=== PATIENT | female | born 1950 | race Caucasian/White ===

== ENCOUNTER 2016-12-13 16:03 | Emergency (ER) ==
--- NOTE | 2016-12-13 16:47 | ED.PDOC ---
General ED Provider: Dr. GABINO GOLDSMITH JR Chief Complaint: Respiratory Complaint Stated Complaint: Sore throat, fever, cough (yellow productive). Pain left posterior chest when breathes. Saw Dr Becerra 3 days ago. Given Rx for amoxicillin. Feeling worse. Low grade temp today, 100.4.[End]5 days 100.4 89 20 96% 167/79 06/03 Time Seen by Physician: 16:30 Mode of Arrival: Walk-In Information Source: Patient Exam Limitations: No limitations Primary Care Provider: MARY BECERRA Nursing and Triage Documentation Reviewed and Agree: No Review of Systems - Review Of Systems Constitutional: Reports: Fever, Malaise Eyes: Reports: No symptoms Ears, Nose, Mouth, Throat: Reports: Nose discharge, Throat pain Respiratory: Reports: Cough Cardiac: Reports: No symptoms GI: Reports: No symptoms : Reports: No symptoms Musculoskeletal: Reports: No symptoms Skin: Reports: No symptoms Neurological: Reports: No symptoms Endocrine: Reports: No symptoms Hematologic/Lymphatic: Reports: No symptoms All Other Systems: Other Past Medical History - Past Medical History Previously Healthy: No Endocrine: Reports: DM 2, Dyslipidemia Cardiovascular: Reports: Hypertension, A-Fib Respiratory: Reports: None Hematological: Reports: Anemia Gastrointestinal: Reports: GERD Genitourinary: Reports: None Neuro/Psych: Reports: Anxiety Musculoskeletal: Reports: Arthritis Cancer: Reports: None Last Menstrual Period: hysterectomy Other Pertinent Past Medical History: LEFT EYE WITH OPTIC NEURITIS - Surgical History General Surgical History: Reports: Hysterectomy, Cholecystectomy, Other (RIGHT EYE, TEAR DUCT SURGERY ) - Family History Family History: Reports: None - Social History Smoking Status: Never smoker Hx Substance Use: No Alcohol Screening: None Physical Exam - Physical Exam Appearance: Well-appearing Pain Distress: Moderate Eyes: BRI, EOMI, Conjunctiva clear ENT: Ears normal, Nose normal, Oropharynx normal Neck: Supple Respiratory: Airway patent, Breath sounds clear, Breath sounds equal, Respirations nonlabored Cardiovascular: RRR, Pulses normal, No rub, No murmur GI/: Soft, Nontender, No masses, Bowel sounds normal, No Organomegaly Musculoskeletal: Normal strength, ROM intact, No edema, No calf tenderness Skin: Warm, Dry, Normal color Neurological: Sensation intact, Motor intact, Reflexes intact, Cranial nerves intact, Alert, Oriented Psychiatric: Affect appropriate, Mood appropriate Critical Care Note - Critical Care Note Total Time (mins): 0 Course - Course Orders, Labs, Meds: Orders Category Date Time Status CXR [CHEST, 2 VIEWS PA & LAT] Stat RADS 12/13/16 16:47 Completed Vital Signs: Temp Pulse Resp BP Pulse Ox 12/13/16 16:04 100.4 F H 89 20 167/79 H 96 Departure - Departure Time of Disposition: 17:09 Disposition: HOME SELF-CARE Discharge Problem: URTI (acute upper respiratory infection) Instructions: Upper Respiratory Infection (ED) Condition: Good Pt referred to PMD for follow-up: Yes Additional Instructions: home finish Amoxil may use Benadryl for symptoms may use Claritin for symptoms call PMD for follow up Allergies/Adverse Reactions: Allergies codeine Adverse Reaction (Verified 03/23/16 22:30) HOT FLASHES Home Medications: Ambulatory Orders Lovastatin 20 mg PO BEDTIME 12/20/13 Metformin HCl [Glucophage] 1,000 mg PO BIDWM 12/20/13 Omeprazole Magnesium [Prilosec Otc] 20 mg PO BID 12/20/13 Losartan Potassium [Cozaar] 50 mg PO DAILY #30 tablet 01/25/15 Potassium Chloride [K-Dur] 20 meq PO BID #60 tab 01/25/15 Amoxicillin/Potassium Clav [Augmentin 500-125 mg Tab] 1 tab PO Q12HR 03/23/16 Glimepiride [Amaryl] 2 mg PO DAILY 03/23/16 Sotalol HCl [Betapace] 80 mg PO BID 03/23/16 Aspirin [Aspirin EC] 81 mg PO DAILYWM 12/13/16
[2016-12-13 16:52] VITALS: BP 167/79; TEMP 100.4; BMI 33.3
--- NOTE | 2016-12-13 17:10 | DI ---
EXAM: Chest two views HISTORY: Cough, fever COMPARISON: 03/23/2016 TECHNIQUE: Two views of the chest were performed FINDINGS: There is lower airway bronchial wall thickening. There is no focal airspace consolidatio n. There is no pleural effusion or pneumothorax. The heart is borderline enlarged and unchanged in size. The mediastinal contour is normal. There is no acute abnormality of the bones. IMPRESSION: Lower airway thickening may represent reactive airways disease or bronchiolitis. No fo kevin airspace consolidation.
== END 2016-12-13 17:35 | disposition home or self-care (01) ==
LOC: ED 16:03
DX: J06.9 Acute upper respiratory infection, unspecified (principal)
CPT/HCPCS: 99282

== ENCOUNTER 2017-05-02 10:08 | Outpatient (CLI) | payer OTHER ==
--- NOTE | 2017-05-03 08:23 | MAMMO ---
EXAM: Bilateral digital screening mammogram History: Screening Comparison: Bilateral mammogram 10/08/2014 Findings: MLO and CC views of bilateral breasts demonstrate scattered fibroglandular breast parench yma. Stable benign bilateral breast calcifications. There are no dominant masses, no suspicious mi crocalcifications and no architectural distortions Impression: Benign stable mammogram. Recommend followup routine screening mammography in 1 year. BIRADS 2
== END 2017-05-02 10:09 | disposition home or self-care (01) ==
LOC: RAD 10:08
PROVIDERS: ATTEND Internal Medicine
DX: Z12.31 Encounter for screening mammogram for malignant neoplasm of breast (principal)

== ENCOUNTER 2018-04-25 12:43 | Outpatient (CLI) ==
--- NOTE | 2018-04-28 12:31 | HOLTER ---
PATIENT INFORMATION AND COMMENTS Attending Physician: DR. MARY BECERRA Indications: ATRIAL FIBRILLATION, SHORT OF BREATH, DIZZINESS __ Patient Medications: LOVASTATIN, SOTALOL, METFORMIN, LOSARTAN, AMARYL, OMEPRAZOLE, TRAMADOL __ Pre-procedure Summary: Protocol: Standard Heart Rate Started: 04/25/18 1312 Minimum: 36 BPM Weight: 129 LBS Ended: 04/26/18 1312 Maximum: 110 BPM Height: 63" Duration: 24 HOURS Average: 61 BPM _ INTERPRETATIONS/OBSERVATIONS: 1. BASIC RHYTHM: ATRIAL FIBRILLATION, RATE 36 BPM TO 110 BPM, AVERAGE 60 BPM 2. RARE AND FEW PVC'S 3. PAUSES OF 2 TO 2.5 SECONDS, TOTAL OF 5 NOTED WHICH WAS AT SLEEP 4. NO ST-T WAVE CHANGES FROM BASELINE 5. ACTIVITY LOG NOT MAINTAINED MTDD
== END 2018-04-25 12:44 | disposition home or self-care (01) ==
LOC: CAR 12:43
PROVIDERS: ATTEND Internal Medicine
DX: I48.91 Unspecified atrial fibrillation (principal)
CPT/HCPCS: 93227

== ENCOUNTER 2018-05-08 06:47 | Outpatient (CLI) ==
--- NOTE | 2018-05-09 11:20 | ECHO2D ---
Date of Exam: 05/08/18 Ordering Physician: FARSHAD MILLER Room #: OP Reason for Echo: ATRIAL FIBRILLATION, SHORT OF BREATH M-Mode Normal Adult Results LV Dimensions Normal Adult Results AoV Opening excursions >1.6 >1.6 LVEDD-base- 3.5-5.8 4.7 Ao root dimensions 2.0-3.7 3.1 LVESD-base- 3.1-4.6 L. Atrium dimensions 1.9-3.8 4.0 Post. Wall thickness 0.8-1.1 1.1 IV septum (thickness) 0.7-1.2 1.1 Post. Wall excursion 0.72-1.3 NORMAL Septal motion 0.7 Systolic motion R. Ventricular cavity 1.5-2.0 NORMAL LVEF 60% 50% Paradoxical septal wall motion NORMAL 2-D : MAYBE MILDLY HYPOKINETIC SEPTUM-SMALL PERICARDIAL EFFUSION--NORMAL VALVES- -NO THROMBUS, NORMAL LEFT VENTRICLE SIZE M-MODE: MV: NORMAL AV: NORMAL TV: NORMAL PV: CHAMBER SIZE: BORDERLINE LEFT ATRIAL SIZE WALL MOTION: MAYBE MILD TO HYPOKINETIC SEPTUM PERICARDIUM: SMALL EFFUSION INTERPRETATION: 1. MAYBE MILD HYPOKINETIC SEPTUM--LEFT VENTRICULAR EJECTION FRACTION 50% 2. NORMAL VALVES 3. BORDERLINE LEFT ATRIAL CAVITY ENLARGEMENT 4. SMALL PERICARDIAL EFFUSION MTDD
== END 2018-05-08 06:48 | disposition home or self-care (01) ==
LOC: CAR 06:47
PROVIDERS: ATTEND Internal Medicine
DX: I48.91 Unspecified atrial fibrillation (principal); R06.02 Shortness of breath

== ENCOUNTER 2018-05-12 14:23 | Observation (INO) ==
--- NOTE | 2018-05-12 15:27 | DI ---
Exam: Two views of the chest. Comparison: 12/13/2016. Reason for exam: Pain. FINDINGS: No pneumothorax, pleural effusion, or focal consolidation. The cardiac silhouette is unch anged. The imaged osseous structures appear grossly unremarkable without acute fracture. Impression: No acute cardiopulmonary process.
--- NOTE | 2018-05-12 15:29 | ED.PDOC ---
General ED Provider: Dr. MELI UREÑA Chief Complaint: Chest Pain Stated Complaint: chest pain Time Seen by Physician: 14:30 Mode of Arrival: Wheelchair Information Source: Patient Exam Limitations: No limitations Primary Care Provider: MARY BECERRA Nursing and Triage Documentation Reviewed and Agree: Yes Reviewed sepsis parameters & appropriate labs ordered?: Yes System Inflammatory Response Syndrome: Not Applicable Sepsis Protocol: For patient's 13 years and over: Temp is 96.8 and below OR 101 and greater Pulse >90 BPM Resp >20/minute Acutely Altered Mental Status Are patient's symptoms suggestive of a new infection, such as: -Pneumonia -Skin, Soft Tissue -Endocarditis -UTI -Bone, Joint Infection -Implantable Device -Acute Abdominal Infection -Wound Infection -Meningitis -Blood Stream Catheter Infection -Unknown Cardiovascular Complaint Exam - Chest Pain Complaint/Exam Onset: Gradual Duration: presentx 1 day Symptoms Are: Still present Timing: Constant Length of Chest Pain Episodes: hours Initial Severity: Moderate Current Severity: Mild Location: Reports: Midsternal (/right chest) Pain Radiates: Reports: Right shoulder, Epigastrium. Denies: Back, Left shoulder, Left arm Character: Reports: Aching Aggravating: Reports: Exertion Alleviating: Reports: None Associated Signs and Symptoms: Reports: Cough. Denies: Diaphoresis, Nausea, Vomiting, Fever, Palpitations, Hemoptysis, Back pain, Abdominal pain, Dizziness , Short of air, Calf pain, Calf swelling Related History: Reports: Similar episode Related Surgical History: Reports: None History of Healthcare-Acquired Pneumonia: Reports: No AMI/ACS Risk Factors: Reports: Diabetes, Hypertension, Dyslipidemia TAD Risk Factors: Reports: Hypertension Pulmonary Embolism Risk Factors: Reports: None Prior Care for this Complaint: Yes Recent Stress Test: Yes Recent Echo/LV Function: Yes JVD Present: No Subcutaneous Emphysema Present: No Diminshed Breath Sounds: No Reproducible Chest Wall Pain: No Bilateral Pulses Present: Yes Unequal Pulses Noted: No If Risk Factors for AMI/ACS Consider: EKG, Cardiac Enzymes If Risk Factors for TAD Consider: Blood pressure control (systolic 180/77 ) Documents Reviewed: Medical records Care and Dx Studies Discussed With: Family, PCP [employer] Consulted: No Differential Diagnoses: Stable Angina, Pulmonary Edema, GI Diseasae, Lower Resp. Infection Quality Indicators For Acute OK or Cardiac Chest Pain: EKG in 10min. Quality Indicator For Non-Traumatic Chest Pain/Syncope: EKG Performed Review of Systems - Review Of Systems Constitutional: Reports: No symptoms Eyes: Reports: No symptoms Ears, Nose, Mouth, Throat: Reports: No symptoms Respiratory: Reports: No symptoms Cardiac: Reports: Chest pain GI: Reports: No symptoms : Reports: No symptoms Musculoskeletal: Reports: No symptoms Skin: Reports: No symptoms Neurological: Reports: No symptoms Endocrine: Reports: No symptoms Hematologic/Lymphatic: Reports: No symptoms All Other Systems: Reviewed and Negative Past Medical History - Past Medical History Previously Healthy: No Endocrine: Reports: DM 2, Dyslipidemia Cardiovascular: Reports: Hypertension, A-Fib Respiratory: Reports: None Hematological: Reports: Anemia Gastrointestinal: Reports: GERD Genitourinary: Reports: None Neuro/Psych: Reports: Anxiety Musculoskeletal: Reports: Arthritis Cancer: Reports: None Last Menstrual Period: none Other Pertinent Past Medical History: LEFT EYE WITH OPTIC NEURITIS - Surgical History General Surgical History: Reports: Hysterectomy, Cholecystectomy, Other (RIGHT EYE, TEAR DUCT SURGERY ) - Family History Family History: Reports: None - Social History Smoking Status: Never smoker Hx Substance Use: No Alcohol Screening: None Physical Exam - Physical Exam Appearance: Well-appearing, No pain distress, Well-nourished Eyes: BRI, EOMI, Conjunctiva clear ENT: Ears normal, Nose normal, Oropharynx normal Respiratory: Airway patent, Breath sounds clear, Breath sounds equal, Respirations nonlabored Cardiovascular: RRR, Pulses normal, No rub, No murmur GI/: Soft, Nontender, No masses, Bowel sounds normal, No Organomegaly Musculoskeletal: Normal strength, ROM intact, No edema, No calf tenderness Skin: Warm, Dry, Normal color Neurological: Sensation intact, Motor intact, Reflexes intact, Cranial nerves intact, Alert, Oriented Psychiatric: Affect appropriate, Mood appropriate Interpretation - Radiology Interpretation Radiology Results: Negative Exam Interpreted: CXR Physician Notification - Case Discussed Physician Notified: pmd Time of Notification: 16:00 Critical Care Note - Critical Care Note Total Time (mins): 0 Course - Course Hematology/Chemistry: 05/12/18 14:53 05/12/18 14:53 Orders, Labs, Meds: Lab Review 05/12/18 05/12/18 05/12/18 14:41 14:53 14:53 WBC 7.67 RBC 4.28 Hgb 12.6 Hct 37.0 MCV 86.4 MCH 29.4 MCHC 34.1 RDW Coeff of Allen 13.1 Plt Count 215 Immature Gran % (Auto) 0.1 Neut % (Auto) 69.4 Lymph % (Auto) 23.1 Foard % (Auto) 5.7 Eos % (Auto) 1.2 Baso % (Auto) 0.5 Immature Gran # (Auto) 0.0 Neut # (Auto) 5.3 Lymph # (Auto) 1.8 Foard # (Auto) 0.4 Eos # (Auto) 0.1 Baso # (Auto) 0.0 PT 11.3 H INR 1.13 APTT 27.2 Puncture Site Lrad O2 Saturation 99.0 ABG pH 7.490 H ABG pCO2 22.3 L ABG pO2 110.0 H ABG HCO3 17.0 L ABG Total CO2 18 L ABG Base Excess 0.6 Raj Test + FiO2 % 21.0 Sodium Potassium Chloride Carbon Dioxide Anion Gap BUN Creatinine Estimated GFR (MDRD) BUN/Creatinine Ratio Glucose Calcium Total Bilirubin AST ALT Alkaline Phosphatase Total Creatine Kinase Troponin I Total Protein Albumin Globulin Albumin/Globulin Ratio 05/12/18 14:53 WBC RBC Hgb Hct MCV MCH MCHC RDW Coeff of Allen Plt Count Immature Gran % (Auto) Neut % (Auto) Lymph % (Auto) Foard % (Auto) Eos % (Auto) Baso % (Auto) Immature Gran # (Auto) Neut # (Auto) Lymph # (Auto) Foard # (Auto) Eos # (Auto) Baso # (Auto) PT INR APTT Puncture Site O2 Saturation ABG pH ABG pCO2 ABG pO2 ABG HCO3 ABG Total CO2 ABG Base Excess Raj Test FiO2 % Sodium 140 Potassium 4.0 Chloride 109 H Carbon Dioxide 18 L Anion Gap 17.0 BUN 12 Creatinine 0.75 Estimated GFR (MDRD) 77.00 BUN/Creatinine Ratio 16.00 Glucose 163 H Calcium 9.5 Total Bilirubin 0.5 AST 14 L ALT 12 Alkaline Phosphatase 53 Total Creatine Kinase 48 Troponin I < 0.0100 Total Protein 7.6 Albumin 4.1 Globulin 3.5 Albumin/Globulin Ratio 1.17 Orders Category Date Time Status ABG DRAW REQUEST Stat CARDIO 05/12/18 14:41 Ordered EKG-(ED ONLY) Stat CARDIO 05/12/18 14:41 Ordered EKG-(IP & OP ONLY) DAILY CARDIO 05/13/18 06:00 Ordered EKG-(IP & OP ONLY) DAILY CARDIO 05/14/18 06:00 Ordered EKG-(IP & OP ONLY) DAILY CARDIO 05/15/18 06:00 Ordered ACTIVITY .BR with BRP CARE 05/12/18 15:38 Ordered BLOOD GLUCOSE MONITORING ACCUCHECK Q6H CARE 05/12/18 15:38 Ordered GIVE HS SNACK 2100 CARE 05/12/18 15:39 Ordered VITAL SIGNS Q8HR CARE 05/12/18 15:38 Ordered ADA 1800 PATRICK. DIET DIETARY 05/12/18 Dinner Ordered HS SNACK DIETARY 05/12/18 Dinner Ordered ED IV/MEDIPORT/POWERPORT .ONCE EMERGENCY 05/12/18 14:41 Active ABG Stat LAB 05/12/18 14:41 Completed B-TYPE NATRIURETIC PEPTIDE Stat LAB 05/12/18 15:36 Ordered CBC W/ AUTO DIFF DAILY@0600 LAB 05/13/18 06:00 Ordered CBC W/ AUTO DIFF DAILY@0600 LAB 05/14/18 06:00 Ordered CBC W/ AUTO DIFF Stat LAB 05/12/18 14:53 Completed COMPREHENSIVE METABOLIC PANEL DAILY@0600 LAB 05/13/18 06:00 Ordered COMPREHENSIVE METABOLIC PANEL DAILY@0600 LAB 05/14/18 06:00 Ordered COMPREHENSIVE METABOLIC PANEL Stat LAB 05/12/18 14:53 Completed CREATINE KINASE Q8H LAB 05/12/18 21:45 Ordered CREATINE KINASE Q8H LAB 05/13/18 05:45 Ordered CREATINE KINASE Stat LAB 05/12/18 14:53 Completed PARTIAL THROMBOPLASTIN TIME Stat LAB 05/12/18 14:53 Completed PT WITH INR Stat LAB 05/12/18 14:53 Completed TROPONIN I Q8H LAB 05/12/18 21:45 Ordered TROPONIN I Q8H LAB 05/13/18 05:45 Ordered TROPONIN I Stat LAB 05/12/18 14:53 Completed 0.9 % Sodium Chloride [Saline Flush] MEDS 05/12/18 14:41 Active 1 syr IVF PRN PRN Apixaban [Eliquis] MEDS 05/12/18 21:00 Ordered 5 mg PO BID Ferrous Sulfate MEDS 05/12/18 21:00 Ordered 324 mg PO BID Losartan Potassium MEDS 05/13/18 09:00 Ordered 50 mg PO DAILY Lovastatin [Lovastatin] MEDS 05/12/18 21:00 Ordered 40 mg PO BEDTIME Omeprazole Magnesium [Prilosec Otc] MEDS 05/12/18 21:00 Ordered 20 mg PO BID Potassium Chloride [K-Dur] MEDS 05/12/18 21:00 Ordered 20 meq PO BID Sodium Chloride 0.9% [Sodium Chloride] 1,000 ml MEDS 05/12/18 16:00 Ordered IV 75 mls/hr Sotalol HCl [Betapace] MEDS 05/12/18 21:00 Ordered 40 mg PO BID CHEST, 2 VIEWS PA & LAT Stat RADS 05/12/18 14:41 Completed Medications Generic Name Dose Route Start Last Admin Trade Name Freq PRN Reason Stop Dose Admin Apixaban 5 mg 05/12/18 21:00 Eliquis PO BID DIA Ferrous Sulfate 324 mg 05/12/18 21:00 Ferrous Sulfate PO BID DIA Non-Formulary Medication 40 mg 05/12/18 21:00 Lovastatin [Lovastatin] PO BEDTIME DIA Non-Formulary Medication 20 mg 05/12/18 21:00 Omeprazole Magnesium [Prilosec Otc] PO BID DIA Non-Formulary Medication 50 mg 05/13/18 09:00 Losartan Potassium PO DAILY DIA Potassium Chloride 20 meq 05/12/18 21:00 K-Dur PO BID DIA Sodium Chloride 1 syr 05/12/18 14:41 Saline Flush IVF PRN PRN To flush IV Sotalol HCl 40 mg 05/12/18 21:00 Betapace PO BID DIA Vital Signs: Temp Pulse Resp BP Pulse Ox 05/12/18 14:23 97.6 F 81 20 182/77 H 98 OBI Risk Score OBI Risk Score: Risk Score Odds of by 30D 0 0.1 (0.1-0.2) 1 0.3 (0.2-0.3) 2 0.4 (0.3-0.5) 3 0.7 (0.6-0.9) 4 1.2 (1.0-1.5) 5 2.2 (1.9-2.6) 6 3.0 (2.5-3.6) 7 4.8 (3.8-6.1) Departure - Departure Time of Disposition: 15:40 Disposition: PLACED OBSERVATION Discharge Problem: Chest pain A-fib Qualifiers: Atrial fibrillation type: persistent Qualified Code(s): I48.1 - Persistent atrial fibrillation Chest pain Qualifiers: Chest pain type: unspecified Qualified Code(s): R07.9 - Chest pain, unspecified Instructions: Chest Pain (ED) Condition: Good Pt referred to PMD for follow-up: Yes IPMP verified?: No Additional Instructions: Please follow-up with Dr. Becerra in 1-5 days. Allergies/Adverse Reactions: Allergies codeine Adverse Reaction (Verified 05/12/18 14:27) HOT FLASHES Home Medications: Ambulatory Orders Lovastatin 40 mg PO BEDTIME 12/20/13 Metformin HCl [Glucophage] 1,000 mg PO BIDWM 12/20/13 Omeprazole Magnesium [Prilosec Otc] 20 mg PO BID 12/20/13 Losartan Potassium [Cozaar] 50 mg PO DAILY #30 tablet 01/25/15 Potassium Chloride [K-Dur] 20 meq PO BID #60 tab 01/25/15 Glimepiride [Amaryl] 1 mg PO DAILY PRN 03/23/16 Sotalol HCl [Betapace] 40 mg PO BID 03/23/16 Apixaban [Eliquis] 5 mg PO BID 05/12/18 Ferrous Sulfate 324 mg PO BID 05/12/18 Disposition Discussed With: Patient, Family
[2018-05-12] MEDS ORDERED: HUMULIN R SUBCUT STA (16:36)
[2018-05-12] MEDS: SODIUM CHLORIDE 1,000 ML IV SCH (17:00)
[2018-05-12 17:09] VITALS: BMI 21.9
[2018-05-12] MEDS: NON-FORMULARY MEDICATION (Omeprazole Magnesium [Prilosec Otc] 20 MG) PO SCH (19:04)
[2018-05-12] MEDS: BETAPACE PO SCH (20:58)
[2018-05-12] MEDS: ELIQUIS PO SCH (20:58)
[2018-05-12] MEDS: K-DUR PO SCH (20:59)
[2018-05-12] MEDS: FERROUS SULFATE PO SCH (20:59)
[2018-05-12] MEDS ORDERED: NON-FORMULARY MEDICATION (Lovastatin [Lovastatin] 40 MG) PO SCH (21:00)
[2018-05-12] MEDS ORDERED: ULTRAM PO PRN (21:14)
[2018-05-12] MEDS ORDERED: TORADOL IVP PRN (21:14)
[2018-05-12] MEDS ORDERED: XANAX PO PRN (21:15)
[2018-05-12] MEDS ORDERED: TYLENOL PO STA (21:29)
[2018-05-13] MEDS: SODIUM CHLORIDE 1,000 ML IV SCH (04:54)
--- NOTE | 2018-05-13 08:43 | PCM.PROG ---
Attending Provider: ATTENDING PROVIDER: Dr. MARY MCMILLAN This patient is seen with Tisha Cruz, Nurse Practitioner. DATE OF SERVICE: 05/13/18 SUBJECTIVE: This 68 year old WHITE/ F was hospitalized 05/12/18. The patient is lying in bed, alert. She had CT with PE protocol this a.m. Chest pain seems to be atypical in nature, right-sided, sharp, shooting radiating to the back. No shortness of breath. No sweating. The pain has resolved this morning. She had an echo last week. Recently had reonset of atrial fibrillation after cardioversion two years ago. She refuses to see Dr. Schneider again. REVIEW OF SYSTEMS: CONSTITUTIONAL: No night sweats. No fatigue, malaise, lethargy. No fever or chills. HEENT: Eyes: No visual changes. No eye pain. No eye discharge. ENT: No runny nose. No epistaxis. No sinus pain. No odynophagia. No congestion. RESPIRATORY: No cough, no congestion. No hemoptysis. No shortness of breath. CARDIOVASCULAR: No angina symptoms. No CHF symptoms. No atypical chest pain for CAD. No palpitations. No orthopnea.. GASTROINTESTINAL: No abdominal pain. No nausea or vomiting. No diarrhea or constipation. No hematemesis. No hematochezia. GENITOURINARY: No urgency. No frequency. No dysuria. No hematuria. No obstructive symptoms. No discharge. No pain. No significant abnormal bleeding. MUSCULOSKELETAL: No musculoskeletal pain; no joint swelling. NEUROLOGICAL: Awake, alert, oriented to time, place and person. No headache. No neck pain. No syncope. No seizures. No dizziness. PSYCHIATRIC: Not anxious. No depression. No suicidal thoughts. No homicidal thoughts. SKIN: No rash. No lesions. No wounds. ENDOCRINE: No unexplained weight loss. No weight gain. HEMATOLOGIC/LYMPHATIC: No anemia. No purpura. No petechiae. No prolonged or excessive bleeding. No palpable lymph nodes. PHYSICAL EXAMINATION: GENERAL: The patient is awake, alert and oriented, lying in bed in no distress. VITAL SIGNS: Temperature 97.4 F, Pulse 66, Respiratory Rate 17, BP 147/74, Pulse Ox 96% HEENT: Head normocephalic, atraumatic. Eyes: Extraocular muscles are intact. Pupils are equal, round and reactive to light and accommodation. Ears: No lesions. Nose appeared normal. Throat: No exudate or erythema. NECK: Supple. No JVD, no carotid bruit. No lymphadenopathy or thyromegaly. LUNGS: Clear to auscultation. Percussion note normal. Chest symmetrical. HEART: Irregular heart rate. S1, S2, no S3. No murmurs. No cyanosis or clubbing. No ascites. Pulses: Dorsalis pedis and posterior tibial pulses +1 to +2 both sides. ABDOMEN: Soft. Non-tender. Bowel sounds active. No CVA tenderness. No mass felt. EXTREMITIES: No edema. Full range of motion of all extremities, equal. NEUROLOGIC: No focal deficit. Cranial nerves II through XII are grossly intact. No headache, no double vision or headache. SKIN: Not dry. Intact. Turgor-normal. LYMPHATIC: No palpable lymph nodes/no lymphedema. MUSCULOSKELETAL: Normal joints with no swelling. Muscle tone is normal. LAB REVIEW: 05/13/18 05:45 05/13/18 05:45 05/13/18 05:45: Sodium 141, Potassium 3.9, Chloride 109 H, Carbon Dioxide 23, Anion Gap 12.9, BUN 11, Creatinine 0.75, Estimated GFR (MDRD) 77.00, BUN/ Creatinine Ratio 14.66, Glucose 137 H, Calcium 8.8, Total Bilirubin 0.6, AST 14 L, ALT 12, Alkaline Phosphatase 48 L, Total Protein 6.9, Albumin 3.8, Globulin 3.1, Albumin/Globulin Ratio 1.23 05/13/18 05:45: WBC 6.03, RBC 3.88 L, Hgb 11.4 L, Hct 34.0 L, MCV 87.6, MCH 29.4 , MCHC 33.5, RDW Coeff of Allen 13.1, Plt Count 182, Immature Gran % (Auto) 0.3, Neut % (Auto) 60.0, Lymph % (Auto) 29.2, Foster % (Auto) 8.3, Eos % (Auto) 1.5, Baso % (Auto) 0.7, Immature Gran # (Auto) 0.0, Neut # (Auto) 3.6, Lymph # (Auto ) 1.8, Foster # (Auto) 0.5, Eos # (Auto) 0.1, Baso # (Auto) 0.0 05/13/18 05:45: Total Creatine Kinase 41, Troponin I < 0.0100 05/12/18 21:43: Total Creatine Kinase 44, Troponin I 0.0100 05/12/18 14:53: B-Natriuretic Peptide 115 H 05/12/18 14:53: Sodium 140, Potassium 4.0, Chloride 109 H, Carbon Dioxide 18 L, Anion Gap 17.0, BUN 12, Creatinine 0.75, Estimated GFR (MDRD) 77.00, BUN/ Creatinine Ratio 16.00, Glucose 163 H, Calcium 9.5, Total Bilirubin 0.5, AST 14 L, ALT 12, Alkaline Phosphatase 53, Total Creatine Kinase 48, Troponin I < 0.0100, Total Protein 7.6, Albumin 4.1, Globulin 3.5, Albumin/Globulin Ratio 1.17 05/12/18 14:53: PT 11.3 H, INR 1.13, APTT 27.2 05/12/18 14:53: WBC 7.67, RBC 4.28, Hgb 12.6, Hct 37.0, MCV 86.4, MCH 29.4, MCHC 34.1, RDW Coeff of Allen 13.1, Plt Count 215, Immature Gran % (Auto) 0.1, Neut % (Auto) 69.4, Lymph % (Auto) 23.1, Foster % (Auto) 5.7, Eos % (Auto) 1.2, Baso % (Auto) 0.5, Immature Gran # (Auto) 0.0, Neut # (Auto) 5.3, Lymph # (Auto ) 1.8, Foster # (Auto) 0.4, Eos # (Auto) 0.1, Baso # (Auto) 0.0 05/12/18 14:41: Puncture Site Lrad, O2 Saturation 99.0, ABG pH 7.490 H, ABG pCO2 22.3 L, ABG pO2 110.0 H, ABG HCO3 17.0 L, ABG Total CO2 18 L, ABG Base Excess 0.6, Raj Test +, FiO2 % 21.0 ASSESSMENT: 1. Chest pain, atypical likely muscular 2. Atrial fibrillation 3. Anxiety 4. Hypertension PLAN: 1. Anticipate d/c home today. 2. Continue Eliquis. 3. The patient refuses any anti inflammatory or medication for pain. Plan and coordination of the patient's care discussed in the presence of Coil Tier and nurse. CONDITION: Stable SCRIBED BY: Marquis TEJADAist scribed while in presence of service performed by Dr. Mcmillan/Tisha Cruz APRN on 05/13/18 (1402)
--- NOTE | 2018-05-13 08:54 | CT ---
EXAM: CTA of the chest. History: Right-sided chest pain. Comparison: Chest radiograph 05/12/2018, CTA chest 01/22/2015 Technique: Multiplanar CT images through the thorax were obtained following administration of IV con trast. MIP images and 3-D reconstructions were also acquired. Findings: Heart is enlarged. Small pericardial effusion similar to the prior study. No thoracic ao rtic aneurysm. No pathologically enlarged thoracic lymph nodes. Mild bilateral ground-glass changes but no consolidation. No pleural fluid and no pneumothorax. No suspicious lung masses or lung nodu les. Within the visualized upper abdomen, status post cholecystectomy. Stable benign calcification within the right adrenal gland. 5 mm right renal calculus. No acute osseous abnormalities. Degenerative changes of the spine. Impression: 1. No pulmonary embolism. 2. Cardiomegaly. 3. Mild bilateral ground-glass changes could be due to early edema or mosaic attenuation from air tr apping. 4. There is no consolidated pneumonia. 5. Right nephrolithiasis.
[2018-05-13] MEDS ORDERED: NON-FORMULARY MEDICATION (Losartan Potassium 50 MG) PO SCH (09:00)
[2018-05-13] MEDS: ELIQUIS PO SCH (10:25)
[2018-05-13] MEDS: BETAPACE PO SCH (10:28)
[2018-05-13] MEDS: K-DUR PO SCH (10:28)
[2018-05-13] MEDS: FERROUS SULFATE PO SCH (10:28)
[2018-05-13] MEDS: NON-FORMULARY MEDICATION (Omeprazole Magnesium [Prilosec Otc] 20 MG) PO SCH (10:30)
[2018-05-13 10:43] VITALS: BP 142/83; TEMP 97.6
[2018-05-13] MEDS ORDERED: LOVASTATIN 40 MG PO SCH (21:00)
--- NOTE | 2018-05-15 10:36 | PN ---
DATE OF SERVICE: 05/12/18 SUBJECTIVE: This is a 68-year-old white female hospitalized with chest pain, right-sided. The patient has history of atrial fibrillation. Chest pain is nonexertional, comes and goes, more superficial. The patient is very anxious going through some family problems. PHYSICAL EXAMINATION: GENERAL: The patient is oriented to time, place and person. VITAL SIGNS: Temperature 97.8, pulse 80, respiratory rate 24, BP 145/69, pulse ox 98%. HEENT: Head normocephalic, atraumatic. Eyes: Extraocular muscles are intact. Pupils are equal, round and reactive to light and accommodation. Ears: No lesions. Nose appeared normal. Throat: No exudate or erythema. NECK: Supple. No JVD, no carotid bruit. No lymphadenopathy or thyromegaly. LUNGS: Decreased breath sounds but clear to auscultation. Percussion note normal. Chest symmetrical. HEART: S1, S2, no S3. No murmurs. No cyanosis or clubbing. No ascites. Pulses: Dorsalis pedis and posterior tibial pulses +1 to +2 both sides. ABDOMEN: Soft. Nontender. Bowel sounds active. No CVA tenderness. No mass felt. EXTREMITIES: No edema. Full range of motion of all extremities, equal. NEUROLOGIC: No focal deficit. Cranial nerves II through XII are grossly intact. No headache, no double vision or headache. SKIN: Not dry. Intact. Turgor - normal. LYMPHATIC: No palpable lymph nodes/no lymphedema. MUSCULOSKELETAL: Normal joints with no swelling. Muscle tone is normal. LABS: EKG atrial fibrillation with normal ventricular response. BNP 115 borderline high. PT 1.1 now. Hemoglobin 12, hematocrit 37, WBC 7,600, normal differential. Creatinine 0.7, BUN 12. ASSESSMENT: 1. Chest pain seems to be noncardiac. 2. Atrial fibrillation. 3. Diabetes mellitus. 4. Hypertension. 5. Dyslipidemia. PLAN: 1. Telemetry 2. Cardiac markers 3. EKGs CONDITION: Stable TIME SPENT: More than 30 minutes. Plan and coordination of the patient's care discussed in the presence of nurse. SANCHEZ
--- NOTE | 2018-05-15 10:38 | PN ---
CODING FOR BILLING 05/12/18 OBSERVATION/LEVEL 5 05/13/18 DISCHARGE MTDD
--- NOTE | 2018-05-15 10:52 | DS ---
DATE OF SERVICE: 05/13/18 FINAL DIAGNOSIS: 1. RIGHT-SIDED CHEST PAIN 2. DIABETES MELLITUS 3. HYPERTENSION 4. DYSLIPIDEMIA 5. ATRIAL FIBRILLATION 6. GENERALIZED ANXIETY DISORDER DISCHARGE INSTRUCTIONS: Followup appointment with Dr. Mcmillan on Saturday, May 19 at 1:15 p.m. MEDICATIONS AT DISCHARGE: Metformin 1,000 mg p.o. b.i.d. with meal (see changes below) Prilosec OTC 20 mg p.o. b.i.d. Cozaar 50 mg p.o. daily Potassium Chloride (K-Dur) 20 mEq p.o. b.i.d. Amaryl 1 mg p.o. daily p.r.n. Betapace 40 mg p.o. b.i.d. Eliquis 5 mg p.o. b.i.d. Ferrous Sulfate 324 mg p.o. q.a.m. Mevacor 40 mg p.o. bedtime The patient will be put on Xanax but when she came back Xanax did not really help her anxiety part and pain on the right side practically subsided. MEDICATION CHANGES: Hold Metformin for today 05/13/18 and tomorrow 05/14/18. Resume Metformin on , 05/15/18. NEW PRESCRIPTIONS: None DIET INSTRUCTIONS: 1800 calorie ADA diet ACTIVITY: Gradually resume activity. Avoid the heat. SMOKING: N/A DISEASE SPECIFIC EDUCATION: Medications Followup appointment Diet Activity HOSPITAL COURSE: 68-year-old white female hospitalized with chest pain, which was right-sided. The patient's cardiac workup was negative for any acute myocardial event. EKG showed atrial fibrillation, no acute changes. She had recent stress test done which was negative for ischemia. Hemoglobin 11.4, hematocrit 34, WBC 6,000, normal differential. CMP was normal. BNP was practically normal at 115, borderline high. INR was 1.13 on Eliquis. The patient had CT angiogram with PE protocol which was negative. She has incidental finding of right nephrolithiasis. CONDITION AT TIME OF DISCHARGE: Stable. TIME SPENT: More than 60 minutes. [facility]
--- NOTE | 2018-05-26 13:31 | SSS ---
DATE OF SERVICE: 05/13/18 REASON FOR CONSULTATION/ADMISSION: Chest pain, persistent Atrial fibrillation HISTORY OF PRESENT ILLNESS: Onset one day-pain is midsternal radiate to right shoulder and abdomen. Pain is achy pain; no other signs or symptoms. REVIEW OF SYSTEMS: CONSTITUTIONAL: No night sweats. No fatigue, malaise, lethargy. No fever or chills. HEENT: Eyes: No visual changes. No eye pain. No eye discharge. ENT: No runny nose. No epistaxis. No sinus pain. No sore throat. No odynophagia. No ear pain. No congestion. RESPIRATORY: No cough, no congestion. No hemoptysis. No shortness of breath. CARDIOVASCULAR: No angina symptoms. No CHF symptoms. No atypical chest pain for CAD. No palpitations. No orthopnea. Irregular heart rate. GASTROINTESTINAL: No abdominal pain. No nausea or vomiting. No diarrhea or constipation. No hematemesis. No hematochezia. GENITOURINARY: No dysuria. No hematuria. No obstructive symptoms. No discharge. No pain. No significant abnormal bleeding. MUSCULOSKELETAL: No musculoskeletal pain. No joint swelling. NEUROLOGICAL: Awake, alert, oriented to time, place and person. No headache. No neck pain. No syncope. No seizures. No dizziness. PSYCHIATRIC: Not anxious. No depression. No suicidal thoughts. No homicidal thoughts. SKIN: No rash. No lesions. No wounds. ENDOCRINE: No unexplained weight loss. No weight gain. No signs or symptoms of hyper or hypoglycemia. HEMATOLOGIC/LYMPHATIC: No anemia. No purpura. No petechiae. No prolonged or excessive bleeding. No palpable lymph nodes. PAST HISTORY: Optic neuritis left eye Neuropathy Atrial fibrillation with cardioversion Hypertension Dyslipidemia Bronchitis GERD Hysterectomy Osteoarthritis Depression Anxiety Anemia Cholecystectomy Diabetes Mellitus type 2 PERSONAL/FAMILY HISTORY/SOCIAL HISTORY: White female 68 year old, 5'4; 127 pounds. lives with spouse. Nonsmoker and no alcohol use. PHYSICAL EXAMINATION: GENERAL: The patient is alert and oriented VITAL SIGNS: Temperature 97.6, pulse 81, blood pressure 182/77, pulse 20 and oxygen saturation 98% on room air. HEENT: Head normocephalic, atraumatic. Eyes: Extraocular muscles are intact. Pupils are equal, round and reactive to light and accommodation. Ears: No lesions. Nose appeared normal. Throat: No exudate or erythema. NECK: Supple. No JVD, no carotid bruit. No lymphadenopathy or thyromegaly. LUNGS: Clear to auscultation. Percussion note normal. Chest symmetrical. HEART: S1, S2, no S3. No murmurs. No cyanosis or clubbing. No ascites. Pulses: Dorsalis pedis and posterior tibial pulses +1 to +2 both sides. ABDOMEN: Soft. Nontender. Bowel sounds active. No CVA tenderness. No mass felt. EXTREMITIES: No edema. Full range of motion of all extremities, equal. NEUROLOGIC: No focal deficit. Cranial nerves II through XII are grossly intact. No headache, no double vision or headache. SKIN: Not dry. Intact. Turgor - normal. LYMPHATIC: No palpable lymph nodes/no lymphedema. MUSCULOSKELETAL: Normal joints with no swelling. Muscle tone is normal. Old/present records reviewed: Yes. Office records reviewed: Yes. EDUCATION CARRIED OUT ABOUT: CAD ALLERGIES: Codeine MEDICATIONS: Metformin Prilosec Cozaar K-Dur Amaryl Betapace Eliquis Ferrous sulfate Mevacor LABS/EKG'S/X-RAY/ECHO/ABG: CBC with in normal limits- PT/INR 11.3/1.13. ABG;s pH 7.490-pCO2 22.3, O2 110.0 , HCO3 17.0, total Co2 18; Chloride 109, CO2 18, Glucose 163, AST 14, BNP 115. Chest x-ray No acute cardiopulmonary process. PROGRESS NOTES: See EMR. DIAGNOSES: 1. Right chest pain atypical 2. AIXA 3. Atrial fibrillation 4. Hypertension 5. Dyslipidemia RECOMMENDATIONS/PLAN: 1. Serial EKG's, negative 2. Telemetry, negative 3. Cardiac markers, negative 4. Atrial fibrillation with normal ventricular response TIME SPENT: More than 70 minutes. MTDD
== END 2018-05-13 15:45 | disposition home or self-care (01) ==
LOC: ED 14:23 → MEDSURG A 15:49
PROVIDERS: ADMIT Internal Medicine; ATTEND Internal Medicine
DX: I48.1 Persistent atrial fibrillation (principal); F41.1 Generalized anxiety disorder; I10 Essential (primary) hypertension; E78.5 Hyperlipidemia, unspecified; E11.9 Type 2 diabetes mellitus without complications
CPT/HCPCS: 36415; 80053; 82550; 82803; 82962; 83880; 84484; 85025; 85610; 85730; 93005; 93010; 96360; 96361; 99217; 99220; 99284

== ENCOUNTER 2019-04-15 12:37 | Outpatient (CLI) ==
--- NOTE | 2019-04-17 08:55 | MAMMO ---
EXAM: Bilateral digital screening mammogram (2-D and 3-D) History: Screening Comparison: Bilateral mammogram 05/02/2017 Findings: MLO and CC views of bilateral breasts demonstrate scattered fibroglandular breast parenchy ma. CAD was reviewed by the radiologist. Tomosynthesis was performed. Stable benign bilateral teena st calcifications. There are no dominant masses, no suspicious microcalcifications and no architectu ral distortions Impression: Benign stable mammogram. Recommend followup routine screening mammography in 1 year. BI-RADS 2, benign
== END 2019-04-15 12:38 | disposition home or self-care (01) ==
LOC: RAD 12:37
PROVIDERS: ATTEND Internal Medicine
DX: Z12.31 Encounter for screening mammogram for malignant neoplasm of breast (principal)

== ENCOUNTER 2022-10-05 12:03 | Inpatient (IN) ==
--- NOTE | 2022-10-05 12:47 | ED.PDOC ---
General ED Provider: Dr. JAIME SPARKS Chief Complaint: Nausea/Vomiting Stated Complaint: patient is a 72 year old female who call her PCP an was told to comes to the ER with nausea and vomiting x 1 week. Had an upper GI series that showed sliding hernia. States started feeling poorly in August after getting the flu shot. Feels dizzy and nauseous today unable to keep anything down even her potassium and has cramping of her legs usually when she does not take her potassium. Time Seen by Provider: 10/05/22 12:45 Mode of Arrival: Walk-In Information Source: Patient Primary Care Provider: MARY BECERRA Nursing and Triage Documentation Reviewed and Agree: Yes Does patient meet sepsis criteria?: No System Inflammatory Response Syndrome: Not Applicable Sepsis Protocol: For patient's 13 years and over: Temp is 96.8 and below OR 101 and greater Pulse >90 BPM Resp >20/minute Acutely Altered Mental Status Are patient's symptoms suggestive of a new infection, such as: -Pneumonia -Skin, Soft Tissue -Endocarditis -UTI -Bone, Joint Infection -Implantable Device -Acute Abdominal Infection -Wound Infection -Meningitis -Blood Stream Catheter Infection -Unknown GI Complaint Exam Vomiting/Diarrhea Complaint/Exam Onset/Duration: 2 days Symptoms Are: Still present Episodes of Vomiting over last 24 Hours: 3 Initial Severity: Moderate Current Severity: Severe Character of Vomiting: Reports Non-bilious Aggravating: Reports Food Associated Signs and Symptoms: Reports Cramping Related History: Reports Similar episode Surgical Obstruction Risk Factors: Reports None Related Surgical History: Reports Cholecystectomy Abdominal Findings: Present [place] tender; Absent CVA Tenderness Differential Diagnoses: Bowel Obstruction, Viral Gastroenteritis, Bacterial Gastroenteritis, Pancreatitis and Other (Appendectomy) Review of Systems Review Of Systems Constitutional: Reports No symptoms Ears, Nose, Mouth, Throat: Reports No symptoms Respiratory: Reports No symptoms Cardiac: Reports Lightheadedness GI: Reports Abdominal pain, Nausea and Vomiting : Reports No symptoms Musculoskeletal: Reports No symptoms Neurological: Reports Anxiety Endocrine: Reports No symptoms All Other Systems: Reviewed and Negative [facility] Social History Smoking and tobacco status: Never smoker History of recent travel: No Female Reproductive History Menstrual Hx Hysterectomy: Yes Hx Tubal Ligation: No Physical Exam Physical Exam Appearance: Reports Ill-appearing and Thin Ill-appearing: Mild Pain Distress: None Eyes: Reports BRI and EOMI ENT: Reports Nose normal and Oropharynx normal Neck: Supple Respiratory: Reports Airway patent, Breath sounds clear and Breath sounds equal Cardiovascular: Reports RRR, Pulses normal and No rub GI/: Reports Soft and Tender (mostly right lower quadrant ) Musculoskeletal: Reports ROM intact and No edema Skin: Reports Warm, Dry and Normal color Neurological: Reports Motor intact, Alert and Oriented Psychiatric: Reports Anxious Interpretation Radiology Interpretation Radiology Interpretation By: Radiologist Radiology Results: Negative (Unchanged 9 mm nonobstructing calculus in the right renal pelvis.) Exam Interpreted: CT Scan Radiology Interpretation By: Radiologist Radiology Results: Negative (1. Atherosclerotic disease. 2. No acute cardiopulmonary process.) Exam Interpreted: CT Scan EKG Interpretation Time of EKG #1: 14:15 Rate: Normal Rhythm: Other (Atrial Fibrillation) Ectopy: None Ary: NL ST Segment: Normal Interpretation: I , AVL, V5 V6 notew with inverted T waves. Critical Care Note Critical Care Note Total Critical Care Time (mins): 30 Course Course Hematology/Chemistry: 10/05/22 12:53 10/05/22 12:53 Orders, Labs, Meds: Lab Review 10/05/22 10/05/22 10/05/22 12:53 12:53 14:36 WBC 10.89 H RBC 3.72 L Hgb 12.3 Hct 37.2 MCV 100.0 H MCH 33.1 H MCHC 33.1 RDW Coeff of Allen 12.8 Plt Count 235 Immature Gran % (Auto) 0.4 Neut % (Auto) 85.0 H Lymph % (Auto) 9.1 L Delta % (Auto) 4.9 Eos % (Auto) 0.2 Baso % (Auto) 0.4 Neut # (Auto) 9.3 H Lymph # (Auto) 1.0 Delta # (Auto) 0.5 Eos # (Auto) 0.0 Baso # (Auto) 0.0 Immature Gran # (Auto) 0.0 Sodium 140.5 Potassium 3.29 L Chloride 101.9 Carbon Dioxide 17.9 L Anion Gap 23.99 BUN 14.2 Creatinine 0.65 Estimated GFR (MDRD) 90.00 BUN/Creatinine Ratio 21.84 Glucose 201.2 H Calcium 8.14 L Magnesium 0.30 L* Total Bilirubin 0.84 AST 28.0 ALT 16.1 Alkaline Phosphatase 52.6 L Total Creatine Kinase 105.2 Troponin I 0.024 Total Protein 8.37 H Albumin 4.92 Globulin 3.45 Albumin/Globulin Ratio 1.42 Urine Color Urine Clarity Urine pH Ur Specific [place] Urine Protein Urine Glucose (UA) Urine Ketones Urine Blood Urine Nitrite Urine Bilirubin Urine Urobilinogen Ur Leukocyte Esterase Urine Microscopic RBC Urine Microscopic WBC Ur Squamous Epith Cells Hyaline Casts Urine Mucus SARS CoV-2 RNA Rapid COLLINS Negative 10/05/22 14:38 WBC RBC Hgb Hct MCV MCH MCHC RDW Coeff of [place] Plt Count Immature Gran % (Auto) Neut % (Auto) Lymph % (Auto) Delta % (Auto) Eos % (Auto) Baso % (Auto) Neut # (Auto) Lymph # (Auto) Delta # (Auto) Eos # (Auto) Baso # (Auto) Immature Gran # (Auto) Sodium Potassium Chloride Carbon Dioxide Anion Gap BUN Creatinine Estimated GFR (MDRD) BUN/Creatinine Ratio Glucose Calcium Magnesium Total Bilirubin AST ALT Alkaline Phosphatase Total Creatine Kinase Troponin I Total Protein Albumin Globulin Albumin/Globulin Ratio Urine Color Yellow Urine Clarity Cloudy Urine pH 6.0 Ur Specific [place] >=1.030 Urine Protein 2+ H Urine Glucose (UA) Negative Urine Ketones 4+ Urine Blood 1+ H Urine Nitrite Negative Urine Bilirubin 2+ H Urine Urobilinogen 0.2 Ur Leukocyte Esterase Negative Urine Microscopic RBC 5-10 Urine Microscopic WBC 0-2 Ur Squamous Epith Cells 5-10 Hyaline Casts 2-5 Urine Mucus 1+ SARS CoV-2 RNA Rapid COLLINS Orders Category Date Time Status PLACE PATIENT OBSERVATION .TO MEDSURG (MONITORED BED ADMISSION 10/05/22 14:37 Active ) EKG-(ED ONLY) Stat CARDIO 10/05/22 12:53 Completed INTAKE & OUTPUT Q8HR CARE 10/05/22 14:37 Active TELEMETRY MONITORING TELE CARE 10/05/22 14:37 Active VITAL SIGNS Q4HR CARE 10/05/22 14:39 Active ED IV/MEDIPORT/POWERPORT .ONCE EMERGENCY 10/05/22 12:53 Active CBC W/ AUTO DIFF DAILY@0600 LAB 10/06/22 06:00 Ordered CBC W/ AUTO DIFF DAILY@0600 LAB 10/07/22 06:00 Ordered CBC W/ AUTO DIFF Stat LAB 10/05/22 12:53 Completed COMPREHENSIVE METABOLIC PANEL DAILY@0600 LAB 10/06/22 06:00 Ordered COMPREHENSIVE METABOLIC PANEL DAILY@0600 LAB 10/07/22 06:00 Ordered COMPREHENSIVE METABOLIC PANEL Stat LAB 10/05/22 12:53 Completed COVID [SARS COV-2 RNA RAPID COLLINS] Stat LAB 10/05/22 14:36 Completed CREATINE KINASE Stat LAB 10/05/22 12:53 Completed MAGNESIUM DAILY@0600 LAB 10/06/22 06:00 Ordered MAGNESIUM DAILY@0600 LAB 10/07/22 06:00 Ordered MAGNESIUM Stat LAB 10/05/22 12:53 Completed MAGNESIUM Stat LAB 10/05/22 16:10 Received TROPONIN I Stat LAB 10/05/22 12:53 Completed URINALYSIS C & S IF INDICATED Stat LAB 10/05/22 14:38 Completed 0.9 % Sodium Chloride [Saline Flush] MEDS 10/05/22 12:53 Active 1 syr IVF PRN PRN Acetaminophen [Tylenol] MEDS 10/05/22 14:37 Active 650 mg PO Q4H PRN Apixaban [Eliquis] MEDS 10/05/22 21:00 Active 5 mg PO BID Losartan Potassium [Cozaar] MEDS 10/05/22 21:00 Active 50 mg PO BID Lovastatin [Mevacor] MEDS 10/05/22 21:00 Active 40 mg PO BEDTIME Magnesium Sulfate Vial [Magnesium Sulfate 1 gm/2 ml MEDS 10/05/22 13:53 Discontinued Vial] 2 gm IVP ONCE ONE Ondansetron HCl/Pf [Zofran 4 mg/2 ml] MEDS 10/05/22 14:37 Active 4 mg IVP Q6H PRN Pantoprazole Sodium [Protonix IV] MEDS 10/05/22 13:08 Discontinued 40 mg IVP ONCE ONE Potassium Chloride [K-Dur] MEDS 10/05/22 17:00 Active 20 meq PO BIDWM Potassium Chloride in 0.9%NaCl [Sodium Chloride 0.9%- MEDS 10/05/22 15:00 Ac tive KCl 20 Meq] 1,000 ml IV 70 mls/hr Sotalol HCl [Betapace] MEDS 10/05/22 21:00 Active 40 mg PO BID Spironolactone [Aldactone] MEDS 10/06/22 09:00 Active 25 mg PO DAILY RESUSCITATION STATUS Routine OTHERS 10/05/22 14:[address] ABD/PEL WO RENAL STONE PROT Stat RADS 10/05/22 12:[address] CHEST W/O CONTRAST Stat RADS 10/05/22 12:53 Completed Medications Generic Name Dose Route Start Last Admin Trade Name Clint PRN Reason Stop Dose Admin Acetaminophen 650 mg 10/05/22 14:37 Acetaminophen 325 Mg Tablet PO Q4H PRN Fever and Mild Pain Apixaban 5 mg 10/05/22 21:00 Apixaban 5 Mg Tab PO BID DIA Potassium Chloride/Sodium Chloride 1,000 mls @ 70 mls/hr 10/05/22 15:00 10/05/22 15:05 Sodium Chloride 0.9%-Kcl 20 Meq IV 70 mls/hr .[id number] DIA Administration Insulin Human Regular 0 unit 10/05/22 15:41 Insulin Regular, Human 100 Unit/Ml (3ml) Vial SUBCUT PRN PRN hyperglycemia Protocol Losartan Potassium 50 mg 10/05/22 21:00 Losartan Potassium 25 Mg Tablet PO BID DIA Lovastatin 40 mg 10/05/22 21:00 Lovastatin 20 Mg Tablet PO BEDTIME DIA Ondansetron HCl 4 mg 10/05/22 14:37 Ondansetron Hcl/Pf 4 Mg/2 Ml Sdv IVP Q6H PRN Nausea / Vomiting Potassium Chloride 20 meq 10/05/22 17:00 Potassium Chloride 20 Meq Tab PO BIDWM DIA Sodium Chloride 1 syr 10/05/22 12:53 0.9% Sodium Chloride 10 Ml Disp.Syrin IVF PRN PRN To flush IV Sotalol HCl 40 mg 10/05/22 21:00 Sotalol Hcl 80 Mg Tablet PO BID DIA Spironolactone 25 mg 10/06/22 09:00 Spironolactone 25 Mg Tablet PO DAILY DIA Discontinued Medications Generic Name Dose Route Start Last Admin Trade Name Clint PRN Reason Stop Dose Admin Magnesium Sulfate 2 gm 10/05/22 13:53 10/05/22 14:42 Magnesium Sulfate Vial 1 Gm/2 Ml Vial IVP 10/05/22 13:54 2 gm ONCE ONE Administration Pantoprazole Sodium 40 mg 10/05/22 13:08 10/05/22 14:42 Pantoprazole Sodium 40 Mg Vial IVP 10/05/22 13:09 40 mg ONCE ONE Administration Vital Signs: Temp Pulse Resp BP Pulse Ox 10/05/22 12:07 97.7 F 98 16 145/79 H 98 Discharge Plan Discharge Patient Disposition: PLACED OBSERVATION Discharge Problem: Hypomagnesemia, Nausea, Vomiting, Hypokalemia Did you review [place] [employer]?: Not Applicable ED Provider: JAIME SPARKS Condition: Fair Physician Progress Note: upper gi series done 10/03/2022 [IMPRESSION: 1. There is persistent narrowing in the distal esophagus. Stricture cannot be excluded and endoscopy is suggested. Small sliding-type hiatal hernia is present. Reflux is observed to the mid esophagus. 2. The stomach, duodenal bulb and C-loop appear normal without ulceration or deformity.]
[2022-10-05] MEDS ORDERED: PROTONIX IV IVP ONE (13:08)
[2022-10-05 13:18] LABS: BASOPHILS % (AUTO) 0.4 % (0.0-3.0); EOSINOPHILS % (AUTO) 0.2 % (0.0-7.0); HEMATOCRIT 37.2 % (37.0-47.0); HEMOGLOBIN 12.3 g/dl (12.0-16.0); IMMATURE GRANULOCYTE % (AUTO) 0.4 % (0.0-5.0); LYMPHOCYTES % (AUTO) 9.1 (10.0-50.0); MEAN CORPUSCULAR HEMOGLOBIN 33.1 pg (27.0-31.0); MEAN CORPUSCULAR HGB CONC 33.1 (31.8-35.4); MONOCYTES # (AUTO) 0.5 K/uL (0.4-2.0); MONOCYTES % (AUTO) 4.9 (0-10); NEUTROPHILS # (AUTO) 9.3 K/ul (2.0-6.9); PLATELET COUNT 235 10^3/uL (140-440); RDW COEFFICIENT OF VARIATION 12.8 % (11.6-14.8); RED BLOOD COUNT 3.72 10^6/ul (4.20-5.40); WHITE BLOOD COUNT 10.89 K/ul (4.6-10.2)
[2022-10-05 13:35] LABS: ALANINE AMINOTRANSFERASE 16.1 U/L (0-35); ALBUMIN 4.92 g/dL (3.5-5.0); ALKALINE PHOSPHATASE 52.6 U/L (53-141); BILIRUBIN,TOTAL 0.84 mg/dL (0.2-1.3); BLOOD UREA NITROGEN 14.2 mg/dL (7-17); CALCIUM 8.14 mg/dL (8.4-10.2); CARBON DIOXIDE 17.9 mmol/L (22-30.0); CHLORIDE 101.9 mmol/L (98-107); CREATINE KINASE 105.2 U/L (30-135); CREATININE 0.65 mg/dL (0.60-1.30); GLUCOSE 201.2 mg/dL (74-106); POTASSIUM 3.29 mmol/L (3.5-5.1); SODIUM 140.5 mmol/L (134.5-145); TOTAL PROTEIN 8.37 g/dL (6.3-8.2)
[2022-10-05 13:45] LABS: MAGNESIUM 0.3 mg/dL (1.6-2.3)
[2022-10-05 13:46] LABS: TROPONIN I 0.024 ng/ml (0.0000-0.120)
[2022-10-05] MEDS ORDERED: MAGNESIUM SULFATE 1 GM/2 ML VIAL IVP ONE (13:53)
--- NOTE | 2022-10-05 14:43 | CT ---
EXAM: CT ABDOMEN AND PELVIS WITHOUT CONTRAST HISTORY: Nausea and vomiting. TECHNIQUE: CT acquisition of the abdomen and pelvis from the lower thorax through the pelvis without IV contrast administration. IV contrast: None. Oral contrast: None. Low dose protocol: No. CT Dose Reduction Techniques Performed: Yes. COMPARISON: CT abdomen pelvis 10/01/2022 FINDINGS: Liver: Focal fatty infiltration along the falciform ligament. Biliary: No biliary ductal dilation. Cholecystectomy. Pancreas: No duct dilation. No mass. Spleen: No mass. No splenomegaly. Adrenals: 6 mm calcification of the right adrenal gland, axial image 12, unchanged from prior and lik mathieu due to prior hemorrhage/injury. Normal left adrenal gland. Kidneys/Ureters: 9 mm calculus in the right renal pelvis. No hydronephrosis. GI Tract: Desiccated oral contrast within the rectum, cecum, and appendix. Normal appendix. No fabien l wall thickening. No bowel dilation. No diverticulosis. Tiny hiatal hernia. Peritoneal Cavity: No ascites. Retroperitoneum: No fluid collection. Lymph Nodes: No lymphadenopathy. Vasculature: Mild aortic calcifications. No aortic or iliac aneurysm within limitations of noncontra st examination. Pelvis: Urinary bladder is nondistended. No free fluid. Bones/Soft Tissues: Degenerative changes of the lumbar spine including severe right L4-L5 neural fora ale stenosis. No acute fracture. Visualized soft tissues are within normal limits. Lower Thorax: Please see the concurrently dictated CT of the chest for detailed evaluation. IMPRESSION: Unchanged 9 mm nonobstructing calculus in the right renal pelvis. All CT scans are performed using dose optimization techniques as appropriate to the performed exam an d include at least one of the following: Automated exposure control, adjustment of the mA and/or kV according t o size, and the use of iterative reconstruction technique.
--- NOTE | 2022-10-05 14:50 | CT ---
EXAM: CT THORAX HISTORY: Vomiting. TECHNIQUE: CT thorax without intravenous contrast. Multiplanar images presented. COMPARISON: 05/13/2018 FINDINGS: Heart size is approaching upper limit normal. There is mild aortic atherosclerosis. Mild coronary artery calcifications are present. No active mediastinal or hilar lymphadenopathy. The eso phagus appears normal by CT. The lungs are clear. No vascular congestion or acute infiltrates. The re is no suspicious pulmonary opacity, pneumothorax or pleural fluid. The bones reveal bridging oste ophytic spurring of the thoracic spine. IMPRESSION: 1. Atherosclerotic disease. 2. No acute cardiopulmonary process. All CT scans are performed using dose optimization techniques as appropriate to the performed exam an d include at least one of the following: Automated exposure control, adjustment of the mA and/or kV according t o size, and the use of iterative reconstruction technique.
[2022-10-05 14:55] LABS: BILIRUBIN,URINE 2+ (NEGATIVE); CLARITY,URINE Cloudy (CLEAR); COLOR,URINE Yellow (YELLOW); GLUCOSE, URINE (UA) Negative (NEGATIVE); KETONES,URINE 4+ (NEGATIVE); LEUKOCYTE ESTERASE ,URINE Negative (NEGATIVE); NITRITE,URINE Negative (NEGATIVE); PROTEIN,URINE 2+ (NEGATIVE); URINE, BLOOD 1+ (NEGATIVE); UROBILINOGEN,URINE 0.2 (0.2)
[2022-10-05 15:03] LABS: MUCUS,URINE 1+ (NOT PRESENT); URINE WBC, MICROSCOPIC 0-2 (0-2)
[2022-10-05] MEDS: SODIUM CHLORIDE 0.9%-KCL 20 MEQ 1,000 ML IV SCH (15:05)
[2022-10-05] MEDS: K-DUR PO SCH ×2 (17:10→17:48)
[2022-10-05 18:06] VITALS: BMI 18.2
[2022-10-05] MEDS: BETAPACE PO SCH (21:32)
[2022-10-05] MEDS: ELIQUIS PO SCH (21:33)
[2022-10-05] MEDS: MEVACOR PO SCH (21:33)
[2022-10-05] MEDS: COZAAR PO SCH (21:33)
[2022-10-05] MEDS: TYLENOL PO PRN (21:33)
[2022-10-05] MEDS: ZOFRAN 4 MG/2 ML IVP PRN (21:33)
[2022-10-06] MEDS: SODIUM CHLORIDE 0.9%-KCL 20 MEQ 1,000 ML IV SCH ×3 (04:58→18:41)
[2022-10-06 06:20] LABS: BASOPHILS # (AUTO) 0.1 K/uL (0-0.2); BASOPHILS % (AUTO) 0.7 % (0.0-3.0); EOSINOPHILS # (AUTO) 0.1 K/ul (0.0-0.7); EOSINOPHILS % (AUTO) 1.2 % (0.0-7.0); HEMATOCRIT 33.7 % (37.0-47.0); HEMOGLOBIN 11.5 g/dl (12.0-16.0); IMMATURE GRANULOCYTE % (AUTO) 0.4 % (0.0-5.0); LYMPHOCYTES # (AUTO) 1.5 K/uL (0.60-3.4); LYMPHOCYTES % (AUTO) 17.5 (10.0-50.0); MEAN CORPUSCULAR HEMOGLOBIN 33.2 pg (27.0-31.0); MEAN CORPUSCULAR HGB CONC 34.1 (31.8-35.4); MEAN CORPUSCULAR VOLUME 97.4 fl (81.0-99.0); MONOCYTES # (AUTO) 0.7 K/uL (0.4-2.0); MONOCYTES % (AUTO) 8.8 (0-10); NEUTROPHILS % (AUTO) 71.4 % (42.2-75.2); PLATELET COUNT 233 10^3/uL (140-440); RED BLOOD COUNT 3.46 10^6/ul (4.20-5.40)
[2022-10-06 06:30] LABS: ALANINE AMINOTRANSFERASE 17.8 U/L (0-35); ALBUMIN 4.68 g/dL (3.5-5.0); ALKALINE PHOSPHATASE 57.5 U/L (53-141); ASPARTATE AMINO TRANSFERASE 30.7 U/L (14-36); BILIRUBIN,TOTAL 0.85 mg/dL (0.2-1.3); BLOOD UREA NITROGEN 15.2 mg/dL (7-17); CALCIUM 7.9 mg/dL (8.4-10.2); CARBON DIOXIDE 21.7 mmol/L (22-30.0); CHLORIDE 105.3 mmol/L (98-107); CREATININE 0.52 mg/dL (0.60-1.30); GLUCOSE 140.8 mg/dL (74-106); MAGNESIUM 1.1 mg/dL (1.6-2.3); POTASSIUM 3.65 mmol/L (3.5-5.1); SODIUM 138.6 mmol/L (134.5-145); TOTAL PROTEIN 8.06 g/dL (6.3-8.2)
[2022-10-06] MEDS: ALDACTONE PO SCH (09:16)
[2022-10-06] MEDS: COZAAR PO SCH ×2 (09:17→20:32)
[2022-10-06] MEDS: BETAPACE PO SCH ×2 (09:17→20:32)
[2022-10-06] MEDS: K-DUR PO SCH ×2 (09:17→17:18)
[2022-10-06] MEDS: ELIQUIS PO SCH ×2 (09:18→20:37)
--- NOTE | 2022-10-06 09:23 | DI ---
EXAM: Chest two view, frontal and lateral views. HISTORY: Cough. COMPARISON: 1 day prior. FINDINGS: The heart size is at the upper limits of normal. Atherosclerotic calcifications are prese nt. There is no pulmonary vascular congestion. The lungs are clear save for calcified granulomatous changes. No pleural effusion or pneumothorax is seen. No acute osseous abnormality identified. Si nce the prior study, there has been no significant interval change. IMPRESSION: No acute cardiopulmonary process.
[2022-10-06] MEDS: MAG-OX PO SCH ×2 (11:31→20:33)
[2022-10-06] MEDS: HUMULIN R SUBCUT PRN (11:32)
[2022-10-06] MEDS: TYLENOL PO PRN ×2 (14:42→20:33)
[2022-10-06] MEDS: ZOFRAN 4 MG/2 ML IVP PRN (18:29)
[2022-10-06] MEDS: MEVACOR PO SCH (20:32)
[2022-10-07 05:08] LABS: BASOPHILS % (AUTO) 0.9 % (0.0-3.0); EOSINOPHILS # (AUTO) 0.1 K/ul (0.0-0.7); EOSINOPHILS % (AUTO) 1.6 % (0.0-7.0); HEMATOCRIT 32.6 % (37.0-47.0); HEMOGLOBIN 10.7 g/dl (12.0-16.0); IMMATURE GRANULOCYTE % (AUTO) 0.7 % (0.0-5.0); LYMPHOCYTES # (AUTO) 1.1 K/uL (0.60-3.4); LYMPHOCYTES % (AUTO) 23.8 (10.0-50.0); MEAN CORPUSCULAR HEMOGLOBIN 32.6 pg (27.0-31.0); MEAN CORPUSCULAR HGB CONC 32.8 (31.8-35.4); MEAN CORPUSCULAR VOLUME 99.4 fl (81.0-99.0); MONOCYTES # (AUTO) 0.4 K/uL (0.4-2.0); MONOCYTES % (AUTO) 9.7 (0-10); NEUTROPHILS # (AUTO) 2.8 K/ul (2.0-6.9); NEUTROPHILS % (AUTO) 63.3 % (42.2-75.2); PLATELET COUNT 173 10^3/uL (140-440); RED BLOOD COUNT 3.28 10^6/ul (4.20-5.40); WHITE BLOOD COUNT 4.42 K/ul (4.6-10.2)
[2022-10-07 05:57] LABS: ALBUMIN 3.7 g/dL (3.5-5.0); ALKALINE PHOSPHATASE 52.2 U/L (53-141); ASPARTATE AMINO TRANSFERASE 27.1 U/L (14-36); BILIRUBIN,TOTAL 0.52 mg/dL (0.2-1.3); BLOOD UREA NITROGEN 6.5 mg/dL (7-17); CARBON DIOXIDE 20.9 mmol/L (22-30.0); CHLORIDE 112.2 mmol/L (98-107); CREATININE 0.45 mg/dL (0.60-1.30); GLUCOSE 124.1 mg/dL (74-106); MAGNESIUM 1.18 mg/dL (1.6-2.3); POTASSIUM 4.31 mmol/L (3.5-5.1); TOTAL PROTEIN 6.52 g/dL (6.3-8.2)
[2022-10-07] MEDS: BETAPACE PO SCH ×2 (08:58→20:55)
[2022-10-07] MEDS: MAG-OX PO SCH ×2 (08:59→20:55)
[2022-10-07] MEDS: ALDACTONE PO SCH (09:00)
[2022-10-07] MEDS: COZAAR PO SCH ×2 (09:01→20:55)
[2022-10-07] MEDS: K-DUR PO SCH ×2 (09:01→17:49)
[2022-10-07] MEDS: ELIQUIS PO SCH ×2 (09:02→20:56)
[2022-10-07] MEDS: TYLENOL PO PRN ×2 (09:09→20:55)
[2022-10-07] MEDS: SODIUM CHLORIDE 0.9%-KCL 20 MEQ 1,000 ML IV SCH (09:11)
[2022-10-07] MEDS: HUMULIN R SUBCUT PRN (12:07)
[2022-10-07] MEDS: MEVACOR PO SCH (20:55)
[2022-10-08 05:50] LABS: BASOPHILS % (AUTO) 0.8 % (0.0-3.0); EOSINOPHILS # (AUTO) 0.1 K/ul (0.0-0.7); EOSINOPHILS % (AUTO) 2.1 % (0.0-7.0); HEMATOCRIT 31.4 % (37.0-47.0); HEMOGLOBIN 10.3 g/dl (12.0-16.0); IMMATURE GRANULOCYTE % (AUTO) 0.2 % (0.0-5.0); LYMPHOCYTES % (AUTO) 20.8 (10.0-50.0); MEAN CORPUSCULAR HEMOGLOBIN 31.8 pg (27.0-31.0); MEAN CORPUSCULAR HGB CONC 32.8 (31.8-35.4); MEAN CORPUSCULAR VOLUME 96.9 fl (81.0-99.0); MONOCYTES # (AUTO) 0.5 K/uL (0.4-2.0); MONOCYTES % (AUTO) 10.5 (0-10); NEUTROPHILS # (AUTO) 3.1 K/ul (2.0-6.9); NEUTROPHILS % (AUTO) 65.6 % (42.2-75.2); PLATELET COUNT 173 10^3/uL (140-440); RDW COEFFICIENT OF VARIATION 12.7 % (11.6-14.8); RED BLOOD COUNT 3.24 10^6/ul (4.20-5.40); WHITE BLOOD COUNT 4.76 K/ul (4.6-10.2)
[2022-10-08 06:06] LABS: ALANINE AMINOTRANSFERASE 15.4 U/L (0-35); ALBUMIN 3.88 g/dL (3.5-5.0); ALKALINE PHOSPHATASE 60.3 U/L (53-141); ASPARTATE AMINO TRANSFERASE 30.5 U/L (14-36); BILIRUBIN,TOTAL 0.58 mg/dL (0.2-1.3); BLOOD UREA NITROGEN 2.5 mg/dL (7-17); CALCIUM 9.26 mg/dL (8.4-10.2); CARBON DIOXIDE 27.5 mmol/L (22-30.0); CHLORIDE 108.3 mmol/L (98-107); CREATININE 0.54 mg/dL (0.60-1.30); GLUCOSE 139.2 mg/dL (74-106); POTASSIUM 4.25 mmol/L (3.5-5.1); SODIUM 139.1 mmol/L (134.5-145); TOTAL PROTEIN 6.8 g/dL (6.3-8.2)
[2022-10-08 07:24] VITALS: BP 148/80; TEMP 96.6
--- NOTE | 2022-10-08 09:19 | PCM.PROG ---
Attending Provider: ATTENDING PROVIDER: Dr. MARY BECERRA This patient is seen with Tisha Cruz, Nurse Practitioner. DATE OF SERVICE: 10/08/22 SUBJECTIVE: This 72 year old /WHITE F was hospitalized 10/05/22. Has been eating well. Tolerated regular diet. No diarrhea, no vomiting. Denies nausea. Already for discharge. REVIEW OF SYSTEMS: CONSTITUTIONAL: No night sweats. Fatigue. No fever or chills. HEENT: Eyes: No visual changes. No eye pain. No eye discharge. ENT: No runny nose. No epistaxis. No sinus pain. No odynophagia. No congestion. RESPIRATORY: No cough, no congestion. No hemoptysis. No shortness of breath. CARDIOVASCULAR: No angina symptoms. No CHF symptoms. No atypical chest pain for CAD. No palpitations. No orthopnea.. GASTROINTESTINAL: No abdominal pain. No nausea or vomiting. No diarrhea or constipation. No hematemesis. No hematochezia. GENITOURINARY: No urgency. No frequency. No dysuria. No hematuria. No obstructive symptoms. No discharge. No pain. No significant abnormal bleeding. MUSCULOSKELETAL: No musculoskeletal pain; no joint swelling. NEUROLOGICAL: Awake, alert, oriented to time, place and person. No headache. No neck pain. No syncope. No seizures. No dizziness. PSYCHIATRIC: Not anxious. No depression. No suicidal thoughts. No homicidal thoughts. SKIN: No rash. No lesions. No wounds. ENDOCRINE: No unexplained weight loss. No weight gain. HEMATOLOGIC/LYMPHATIC: No anemia. No purpura. No petechiae. No prolonged or excessive bleeding. No palpable lymph nodes. PHYSICAL EXAMINATION: GENERAL: The patient is awake, alert and oriented, sitting in bed in no distress. VITAL SIGNS: Temperature 96.6 F, Pulse 78, Respiratory Rate 18, BP 148/80, Pulse Ox 100% HEENT: Head normocephalic, atraumatic. Eyes: Extraocular muscles are intact. Pupils are equal, round and reactive to light and accommodation. Ears: No lesions. Nose appeared normal. Throat: No exudate or erythema. NECK: Supple. No JVD, no carotid bruit. No lymphadenopathy or thyromegaly. LUNGS: Diminished breath sounds. Clear to auscultation. Percussion note normal. Chest symmetrical. HEART: S1, S2, no S3. Irregular heart rate. No murmurs. No cyanosis or clubbing. No ascites. Pulses: Dorsalis pedis and posterior tibial pulses +1 to +2 both sides. ABDOMEN: Soft. Non-tender. Bowel sounds active. No CVA tenderness. No mass felt. EXTREMITIES: No edema. Full range of motion of all extremities, equal. NEUROLOGIC: No focal deficit. Cranial nerves II through XII are grossly intact. No headache. No double vision. SKIN: Not dry. Intact. Turgor-normal. LYMPHATIC: No palpable lymph nodes/no lymphedema. MUSCULOSKELETAL: Normal joints with no swelling. Muscle tone is normal. LAB REVIEW: 10/08/22 05:35 10/08/22 05:35 10/08/22 05:35: Sodium 139.1, Potassium 4.25, Chloride 108.3 H, Carbon Dioxide 27.5, Anion Gap 7.55, BUN 2.5 L, Creatinine 0.54 L, Estimated GFR (MDRD) 111.00, BUN/Creatinine Ratio 4.62, Glucose 139.2 H, Calcium 9.26, Total Bilirubin 0.58, AST 30.5, ALT 15.4, Alkaline Phosphatase 60.3, Total Protein 6.80, Albumin 3.88, Globulin 2.92, Albumin/Globulin Ratio 1.32 10/08/22 05:35: WBC 4.76, RBC 3.24 L, Hgb 10.3 L, Hct 31.4 L, MCV 96.9, MCH 31.8 H, MCHC 32.8, RDW Coeff of Allen 12.7, Plt Count 173, Immature Gran % (Auto) 0.2, Neut % (Auto) 65.6, Lymph % (Auto) 20.8, [place] % (Auto) 10.5 H, Eos % (Auto) 2.1, Baso % (Auto) 0.8, Neut # (Auto) 3.1, Lymph # (Auto) 1.0, [place] # (Auto) 0.5, Eos # (Auto) 0.1, Baso # (Auto) 0.0, Immature Gran # (Auto) 0.0 ASSESSMENT: Please see below. 1. Acute gastroenteritis, improved 2. Dehydration, resolved 3. Atrial fibrillation 4. Diabetes Mellitus. PLAN: 1. Will resume home medications 2. Followup in the office next week 3. Discharge in stable condition. Plan and coordination of the patient's care discussed in the presence of Disability Specialist and nurse. SCRIBED BY: HELGA STEVENSON Information Assurance Officer scribed while in presence of service performed by Dr. Becerra/Tisha Cruz APRN on 10/08/22 ([id number])
--- NOTE | 2022-10-08 09:21 | DS ---
DATE OF SERVICE: 10/08/22 FINAL DIAGNOSIS: 1. Acute gastroenteritis, improved 2. Dehydration, resolved 3. Atrial fibrillation 4. Diabetes Mellitus. DISCHARGE INSTRUCTIONS: Discharge home. Resume normal medications as take prior to hospital admission. Followup with Dr. Mcmillan's office October 16 at 3pm. MEDICATIONS AT DISCHARGE: Metformin 1000mg PO BID Prilosec 20mg PO BID Potassium Chloride 20meq PO BID Amaryl 1mg PO daily PRN Sorine 40mg PO BID Eliquis 5mg PO BID Lovastatin 40mg PO bedtime Ondansetron 4mg PO Q 8 hours PRN Spironolactone 25mg PO daily Pantoprazole 40mg PO BID Losartan 50mg PO BID DIET INSTRUCTIONS: Regular diet ACTIVITY: Activity as tolerated HOSPITAL COURSE: 72 year old white female admitted through the ER with vomiting and diarrhea. Initially started on IV fluids and clear liquid diet. She was given IV Protonix. Metformin was held. Over the course of the past several day vomiting and diarrhea has resolved. Yesterday had formed stool. Diet lowly advanced to normal and has been tolerating well. Renal function is normal. Will discharge home today. She has Zofran at home to resume all home medications. She will followup in the office next week. TIME SPENT: More than 60 minutes. SANCHEZ
[2022-10-08] MEDS: K-DUR PO SCH (09:30)
[2022-10-08] MEDS: MAG-OX PO SCH (09:30)
[2022-10-08] MEDS: COZAAR PO SCH (09:30)
[2022-10-08] MEDS: BETAPACE PO SCH (09:30)
[2022-10-08] MEDS: ALDACTONE PO SCH (09:31)
[2022-10-08] MEDS: ELIQUIS PO SCH (09:31)
[2022-10-08] MEDS: TYLENOL PO PRN (09:35)
--- NOTE | 2022-10-08 09:56 | RS.SLPCNOT ---
Speech Case Note Date of Note: 10/08/22 Title: Speech consult Note: Pt is to d/c home today. No concerns for speech evaluation at this time. Thank you for this consult.
--- NOTE | 2022-10-08 11:17 | PN ---
DATE OF SERVICE: 10/05/22 SUBJECTIVE: 72 year old white female came to the emergency room with acute gastroenteritis type of symptoms. She was mildly dehydration. The workup the patient had mild hypokalemia and severe hypomagnesium. She was feeling fatigue and tired with some palpitation. She has been hospitalized for assessment of electrolyte imbalance with magnesium supplements to be given. The patient is going to be given slow IV fluids. She will be monitored for fluid overload. Telemetry is going to be applied with EKG. Condition seems to be stable. CT of the abdomen was practically unremarkable except for normal obstructive nephrolithiasis. TIME SPENT: More than 30 minutes. Plan and coordination of the patient's care discussed in the presence of nurse. SANCHEZ
--- NOTE | 2022-10-08 14:42 | PN ---
DATE OF SERVICE: 10/06/22 SUBJECTIVE: 72 year old white female hospitalized with acute gastroenteritis. The patient's condition has improved. Dehydration clinically has improved. Feeling a lot better. REVIEW OF SYSTEMS: CONSTITUTIONAL: No night sweats. No fatigue, malaise, lethargy. No fever or chills. Weakness. Feeling better. HEENT: Eyes: No visual changes. No eye pain. No eye discharge. ENT: No runny nose. No epistaxis. No sinus pain. No sore throat. No odynophagia. No congestion. RESPIRATORY: No cough, no congestion. No hemoptysis. No shortness of breath. CARDIOVASCULAR: No angina symptoms. No CHF symptoms. No atypical chest pain for CAD. No palpitations. No PND. No orthopnea. GASTROINTESTINAL: No abdominal pain. No nausea or vomiting. No diarrhea or constipation. No hematemesis. No hematochezia. GENITOURINARY: No urgency. No frequency. No dysuria. No hematuria. No obstructive symptoms. No discharge. No pain. No significant abnormal bleeding. MUSCULOSKELETAL: No musculoskeletal pain; no joint swelling. NEUROLOGICAL: No headache. No neck pain. No syncope. No seizures. No dizziness. PSYCHIATRIC: Not anxious. No depression. No suicidal thoughts. No homicidal thoughts. SKIN: No rash. No lesions. No wounds. ENDOCRINE: No unexplained weight loss. No weight gain. HEMATOLOGIC/LYMPHATIC: No anemia. No purpura. No petechiae. No prolonged or excessive bleeding. No palpable lymph nodes. PHYSICAL EXAMINATION: VITAL SIGNS: Temperature 97.5, pulse 63, respiratory rate 18, blood pressure 95/57 and pulse ox 98%. HEENT: Head normocephalic, atraumatic. Eyes: Extraocular muscles are intact. Pupils are equal, round and reactive to light and accommodation. Ears: No lesions. Nose appeared normal. Throat: No exudate or erythema. NECK: Supple. No JVD, no carotid bruit. No lymphadenopathy or thyromegaly. LUNGS: Decreased breath sounds but clear to auscultation. Percussion note normal. Chest symmetrical. HEART: S1, S2, no S3. No murmurs. No cyanosis or clubbing. No ascites. Pulses: Dorsalis pedis and posterior tibial pulses +1 to +2 bilaterally. ABDOMEN: Soft. Nontender. Bowel sounds active. No CVA tenderness. No mass felt. EXTREMITIES: No edema. Full range of motion of all extremities, equal. NEUROLOGIC: No focal deficit. Cranial nerves II through XII are grossly intact. No headache. No double vision. SKIN: Not dry. Intact. Turgor - normal. LYMPHATIC: No palpable lymph nodes/no lymphedema. MUSCULOSKELETAL: Normal joints with no swelling. Muscle tone is normal. LABS: Hgb 11.5, hct 33,WBC 8,400 normal differential, creatinine 0.5, BUN 15, potassium 3.6. ASSESSMENT: 1. Acute gastroenteritis seems to have resolved 2. Atrial fibrillation, abnormal EKG which has not been changed for past few years. EKG compared with the old ones PLAN: 1. GI panel 2. Hold Losartan because if the blood pressure is less than 130 3. Continue the rest of the medications as before TIME SPENT: More than 30 minutes. Plan and coordination of the patient's care discussed in the presence of nurse. SANCHEZ
--- NOTE | 2022-10-09 09:07 | PN ---
DATE OF SERVICE: 10/07/22 SUBJECTIVE: 72 year old white female hospitalized with acute gastroenteritis, dehydration. The patient's condition has improved. She is up and about doing well still weak. present in the room. REVIEW OF SYSTEMS: CONSTITUTIONAL: No night sweats. No fatigue, malaise, lethargy. No fever or chills. HEENT: Eyes: No visual changes. No eye pain. No eye discharge. ENT: No runny nose. No epistaxis. No sinus pain. No sore throat. No odynophagia. No congestion. RESPIRATORY: No cough, no congestion. No hemoptysis. No shortness of breath. CARDIOVASCULAR: No angina symptoms. No CHF symptoms. No atypical chest pain for CAD. No palpitations. No PND. No orthopnea. GASTROINTESTINAL: No abdominal pain. No nausea or vomiting. No diarrhea or constipation. No hematemesis. No hematochezia.Appetite has improved. GENITOURINARY: No urgency. No frequency. No dysuria. No hematuria. No obstructive symptoms. No discharge. No pain. No significant abnormal bleeding. MUSCULOSKELETAL: No musculoskeletal pain; no joint swelling. NEUROLOGICAL: No headache. No neck pain. No syncope. No seizures. No dizziness. PSYCHIATRIC: Not anxious. No depression. No suicidal thoughts. No homicidal thoughts. SKIN: No rash. No lesions. No wounds. ENDOCRINE: No unexplained weight loss. No weight gain. HEMATOLOGIC/LYMPHATIC: No anemia. No purpura. No petechiae. No prolonged or excessive bleeding. No palpable lymph nodes. PHYSICAL EXAMINATION: VITAL SIGNS: Temperature 97.5, pulse 62, respiratory rate 19, blood pressure 140/80 and pulse ox 98%. HEENT: Head normocephalic, atraumatic. Eyes: Extraocular muscles are intact. Pupils are equal, round and reactive to light and accommodation. Ears: No lesions. Nose appeared normal. Throat: No exudate or erythema. NECK: Supple. No JVD, no carotid bruit. No lymphadenopathy or thyromegaly. LUNGS: Decreased breath sounds but clear to auscultation. Percussion note normal. Chest symmetrical. HEART: S1, S2, no S3. No murmurs. No cyanosis or clubbing. No ascites. Pulses: Dorsalis pedis and posterior tibial pulses +1 to +2 bilaterally. ABDOMEN: Soft. Nontender. Bowel sounds active. No CVA tenderness. No mass felt. EXTREMITIES: No edema. Full range of motion of all extremities, equal. NEUROLOGIC: No focal deficit. Cranial nerves II through XII are grossly intact. No headache. No double vision. SKIN: Not dry. Intact. Turgor - normal. LYMPHATIC: No palpable lymph nodes/no lymphedema. MUSCULOSKELETAL: Normal joints with no swelling. Muscle tone is normal. LABS: Hgb 10.7, hct 32, WBC 4,000 normal differential, creatinine 0.4, BUN 6, potassium 4.3. ASSESSMENT: 1. Acute gastroenteritis with dehydration seems to have resolved. 2. Atrial fibrillation, abnormal EKG with ST-T wave changes seems to be chronic. 3. Diabetes Mellitus 4. Hypertension PLAN: 1. Continue the rest of the medications as before 2. Discontinue IV fluids TIME SPENT: More than 30 minutes. Plan and coordination of the patient's care discussed in the presence of nurse. SANCHEZ
--- NOTE | 2022-10-09 14:24 | PN ---
ADMISSION DAY: Level 5 REST OF THEM: Intermediate FINAL DAY: D as in discharge. MTDD
--- NOTE | 2022-10-09 14:24 | PN ---
DATE OF SERVICE: 10/08/22 SUBJECTIVE: The patient was seen and examined with the Nurse Practitioner. The patient's acute gastroenteritis has resolved. The patient's EKG as usual showing T wave inversion symmetrically with atrial fibrillation. She had no evidence of AL, subarachnoid hemorrhage etc. The patient has declined any further workup for coronary artery disease in a way of Dobutamine stress echo or Dobutamine stress echo sestamibi. The patient has several risk factors for coronary artery disease, discussed with her in detail. The patient is under a lot of stress from husbands problems she is going through. CONDITION: Stable. The patient strongly advised to avoid milk and dairy products. Discharge plan and discharge summary was reviewed with Nurse Practitioner. Condition is stable at the time of discharge. TIME SPENT: More than 30 minutes. Plan and coordination of the patient's care discussed in the presence of nurse. SANCHEZ
--- NOTE | 2022-10-15 13:57 | HP ---
DATE OF SERVICE: 10/05/22 REASON FOR HOSPITALIZATION: 72 year old white female hospitalized with acute gastroenteritis, dehydration. She was seen in the emergency room. HISTORY OF PRESENT ILLNESS: 72 year old white female came to the emergency room because of having rubbery legs and gastroenteritis type of symptoms for past 2-3 days prior to hospitalization. The has been having weakness and flu type of symptoms after she had got flu shots. She was also seen in the emergency room following that and was given Zofran. Symptoms of flu started 4 days after she had a flu shot. She had diarrhea off and on for 2-3 weeks. She was seen in the office on 09/28/22 and then she was seen in the emergency room on 09/27/22. At that time her Potassium was 2.9. According to the patient she felt a lot better the day after she was seen in the ER with Zofran. The patient was advised to restart on Aldactone during that visit. PAST MEDICAL HISTORY/PAST SURGICAL HISTORY: Diabetes mellitus Atrial fibrillation Hypertension Dyslipidemia Reflux disease REVIEW OF SYSTEMS: CONSTITUTIONAL: No night sweats. Weakness and fatigue with rubbery legs. No fever or chills. HEENT: Eyes: No visual changes. No eye pain. No eye discharge. ENT: No runny nose. No epistaxis. No sinus pain. No sore throat. No odynophagia. No ear pain. No congestion. RESPIRATORY: No cough, no congestion. No hemoptysis. Shortness of breath on exertion. CARDIOVASCULAR: No angina symptoms. No CHF symptoms. No atypical chest pain for CAD. No palpitations. No PND. No orthopnea. GASTROINTESTINAL: No abdominal pain. No nausea or vomiting. No constipation. No hematemesis. No hematochezia. Poor appetite with no vomiting lately but has mild diarrhea. GENITOURINARY: No urgency. No frequency. No dysuria. No hematuria. No obstructive symptoms. No discharge. No pain. No significant abnormal bleeding. MUSCULOSKELETAL: No musculoskeletal pain. No joint swelling. No arthritis.Generalized weakness with rubbery legs and inability to even stand up. NEUROLOGICAL: No headache. No neck pain. No syncope. No seizures. No dizziness. PSYCHIATRIC: Not anxious. No depression. No suicidal thoughts. No homicidal thoughts. SKIN: No rash. No lesions. No wounds. ENDOCRINE: No unexplained weight loss. No weight gain. HEMATOLOGIC/LYMPHATIC: No anemia. No purpura. No petechiae. No prolonged or excessive bleeding. No palpable lymph nodes. PERSONAL/FAMILY/SOCIAL HISTORY: The patient is and lives with the who go through a lot of problems and the patient is quite worried about those problems. She is nonsmoker and no alcohol abuse. MEDICATIONS: Metformin Omeprazole Potassium Glimepiride Sotalol Apixaban Lovastatin Ondansetron Spironolactone Pantoprazole Losartan ALLERGIES: Codeine. PHYSICAL EXAMINATION: GENERAL: The patient is oriented to time, place and person. VITAL SIGNS: Temperature 98, pulse 65, respiratory rate 18, blood pressure 100/70 and pulse ox 98% on room air. HEENT: Head normocephalic, atraumatic. Eyes: Extraocular muscles are intact. Pupils are equal, round and reactive to light and accommodation. Ears: No lesions. Nose appeared normal. Throat: No exudate or erythema. NECK: Supple. No JVD, no carotid bruit. No lymphadenopathy or thyromegaly. LUNGS: Decreased breath sounds but clear to auscultation. Percussion note normal. Chest symmetrical. HEART: S1, S2, no S3. No murmur. No cyanosis or clubbing. No ascites. Pulses: Dorsalis pedis and posterior tibial pulses +1 bilaterally. ABDOMEN: Soft. Nontender. Bowel sounds active. No CVA tenderness. No mass felt. EXTREMITIES: No edema. Full range of motion of all extremities, equal. NEUROLOGIC: No focal deficit. Cranial nerves II through XII are grossly intact. No headache, no double vision or headache. SKIN: Dry. Intact. Turgor - normal. Mucus membrane dry. LYMPHATIC: No palpable lymph nodes/no lymphedema. MUSCULOSKELETAL: Normal joints with no swelling. Muscle tone is normal. LABS: Estimated GFR 90cc per minute, glucose 201 on admission, Troponin was negative. Hgb 12.3, hct 37, WBC 10,000 normal differential, creatinine 0.6, BUN 14, potassium 3.2. Magnesium 0.3 low. EKG atrial fibrillation with ST-T changes with T wave inversions, practically unchanged from many years. ASSESSMENT: 1. Acute gastroenteritis with severe hypomagnesia 2. Dehydration 3. Atrial fibrillation 4. Diabetes Mellitus 5. Chronic anemia PLAN: 1. Hydrate the patient 2. Magnesium supplements to be given 3. 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 EKG, The patient's EKG is markedly abnormal at times with ST-T wave inversions noted off and on which are very common for her. 6. The patient's blood pressure was borderline low so we will hold all the antihypertensive medications until the systolic blood pressure is 130. TIME SPENT: More than 70 minutes. SANCHEZ
--- NOTE | 2022-10-15 14:07 | DS ---
DATE OF SERVICE: 10/08/22 FINAL DIAGNOSIS: 1. Acute gastroenteritis with hypomagnesia, electrolyte imbalance and dehydration 2. Atrial fibrillation 3. Diabetes mellitus 4. Hypertension 5. Dyslipidemia 6. Chronic anemia 7. Generalized anxiety disorder DISCHARGE INSTRUCTIONS: Discharge home. Continue the rest of the medications as before. No change in the medications. The patient had Zofran given from the emergency room that she has it at home. She is advised to take it in case. Imodium to be taken over the counter for diarrhea 2-3 times per day. Advised to come back in 5-6 days on followup. MEDICATIONS AT DISCHARGE: Metformin Omeprazole Potassium Glimepiride Sotalol Apixaban Lovastatin Ondansetron Spironolactone Pantoprazole Losartan HOSPITAL COURSE: 72 year old white female seen in the emergency room in three weeks two times. The second time when she came in she was kept in the hospital because of evidence of dehydration and severe lower level of Magnesium. The patient was given IV fluids. Magnesium was supplemented. Her condition has improved. Her hydration status has improved. She did not have any nausea or vomiting during the stay in the hospital. She was up and about. On discharge she had no symptoms of CHF or coronary insufficiency. Her electrolytes were practically normal. She is strongly advised to eat on a regular basis. Don't skip the meals. She has been going through a very difficult time with her problems. Condition at the time of discharge is stable. TIME SPENT: More than 60 minutes. [facility]
--- NOTE | 2022-10-15 14:08 | PN ---
10/05/22: Level 5 10/06/22: Intermediate 10/07/22: Intermediate 10/08/22: D as in discharge MTDD
== END 2022-10-08 10:45 | disposition home or self-care (01) | DRG 392 ==
LOC: MEDSURG A 12:03 → ED 12:03 → MEDSURG A 17:22
PROVIDERS: ADMIT Internal Medicine; ATTEND Internal Medicine
DX: Z79.01 Long term (current) use of anticoagulants; R11.2 Nausea with vomiting, unspecified; E86.0 Dehydration; Z51.81 Encounter for therapeutic drug level monitoring; E87.6 Hypokalemia; I48.20 Chronic atrial fibrillation, unspecified; Z79.899 Other long term (current) drug therapy; E11.9 Type 2 diabetes mellitus without complications; K52.9 Noninfective gastroenteritis and colitis, unspecified; E83.42 Hypomagnesemia; Z79.84 Long term (current) use of oral hypoglycemic drugs; I10 Essential (primary) hypertension; Z20.822 Contact with and (suspected) exposure to COVID-19; I48.91 Unspecified atrial fibrillation